=== PATIENT | female | born 1985 | race Caucasian/White ===

== ENCOUNTER → 2016-06-28 | Outpatient (REF) | payer BC, SELFPAY | LOC: M LAB REF 16:46 | PROVIDERS: ATTEND Physician Assistant Medical | DX: R30.0 Dysuria (principal) ==

== ENCOUNTER → 2017-06-05 | Outpatient (REF) | payer OTHER ==
[2017-06-05 17:21] LABS: HIV 1&2 SCREEN CENTAUR NEGATIVE (NEGATIVE)
[2017-06-05 19:10] LABS: CHLAMYDIA DNA AMPLIFICATION NEGATIVE (NEGATIVE); GC DNA AMPLIFICATION NEGATIVE (NEGATIVE)
[2017-06-11 00:06] LABS: HPV HYBRID CAPTURE II Negative (Negative)
== END ==
LOC: M SFHCWAGY 14:18
DX: Z12.4 Encounter for screening for malignant neoplasm of cervix (principal); Z11.3 Encounter for screening for infections with a predominantly sexual mode of transmission; Z11.4 Encounter for screening for human immunodeficiency virus [HIV]
CPT/HCPCS: 36415

== ENCOUNTER → 2017-06-11 | Outpatient (CLI) | payer OTHER | LOC: M WHC 09:14 | DX: N83.201 Unspecified ovarian cyst, right side (principal); N85.00 Endometrial hyperplasia, unspecified; Z87.42 Personal history of other diseases of the female genital tract | CPT/HCPCS: 76830 ==

== ENCOUNTER → 2023-06-07 | Outpatient (CLI) | payer OTHER ==
[2023-06-07 17:47] LABS: HEMATOCRIT 31.9 % (36.0-47.0); HEMOGLOBIN 10.5 g/dl (12.0-15.5); MEAN CORPUSCULAR HEMOGLOBIN 30.1 pg (27.0-33.0); MEAN CORPUSCULAR HGB CONC 32.9 g/dl (32.0-36.5); MEAN CORPUSCULAR VOLUME 91.4 fl (80.0-96.0); PLATELET COUNT, AUTOMATED 356 10^3/uL (150-450); RED BLOOD COUNT 3.49 10^6/uL (4.00-5.40); WHITE BLOOD COUNT 8.1 10^3/uL (4.0-10.0)
[2023-06-07 18:36] LABS: HIV 1&2 SCREEN NEGATIVE (NEGATIVE)
[2023-06-07 18:45] LABS: HEPATITIS C VIRUS ABY INDEX 0.03 INDEX (<0.8)
[2023-06-07 19:18] LABS: GC DNA AMPLIFICATION NEGATIVE (NEGATIVE)
== END ==
LOC: M PLALAB 15:17
PROVIDERS: ATTEND Advanced Practice Midwife
DX: Z34.91 Encounter for supervision of normal pregnancy, unspecified, first trimester (principal)

== ENCOUNTER → 2023-07-17 | Outpatient (CLI) | payer OTHER | LOC: M RAD 14:16 | PROVIDERS: ATTEND Obstetrics & Gynecology | DX: Z34.92 Encounter for supervision of normal pregnancy, unspecified, second trimester (principal) ==

== ENCOUNTER → 2023-09-05 | Outpatient (CLI) | payer OTHER | LOC: M LAB 07:54 | PROVIDERS: ATTEND Obstetrics & Gynecology | DX: R73.09 Other abnormal glucose (principal) ==

== ENCOUNTER 2023-09-09 08:17 | Outpatient (CLI) | payer OTHER ==
[~2023-09-09] VITALS: Ht 160 cm; Wt 58.2 kg
[~2023-09-09 08:17] MED LIST: ALBUTEROL SULFATE 2.5MG/0.5ML INH NEB SOLN INH PRN; EPINEPHrine INJ 1 MG/ML 1ML AMP IM PRN
[2023-09-09 08:45] VITALS: BP 103/57; O2SAT 97
[2023-09-09] MEDS ORDERED: NS 1,000 ML IV SCH (09:00)
[2023-09-09] MEDS ORDERED: TUMS500C PO (09:06)
[2023-09-09] MEDS ORDERED: MULTTAB20 PO (09:06)
[2023-09-09] MEDS ORDERED: IRON1TAB2 PO (09:06)
[2023-09-09] MEDS ORDERED: ZOLO50TA PO (09:06)
[2023-09-09] MEDS: IRON SUCROSE 500 MG in NS 250 ML OVER 4 HRS IV ONE (09:20)
[2023-09-09 10:00] VITALS: BP 96/55; O2SAT 98
[2023-09-09 11:00] VITALS: BP 109/55; O2SAT 97
[2023-09-09 12:00] VITALS: BP 111/64; O2SAT 99
[2023-09-09 13:00] VITALS: BP 109/59; O2SAT 97
[2023-09-09] MEDS: diphenhydrAMINE 50MG/ML VIAL IV PRN (13:22)
[2023-09-09] MEDS: methylPREDNISolone 125MG 2ML VIAL IV PRN (13:42)
[2023-09-09 13:47] VITALS: BP 109/60; O2SAT 100
[2023-09-09] MEDS: ACETAMINOPHEN 500 MG TAB PO ONE (14:23)
[2023-09-09] MEDS: NS 1,000 ML IV ONE (14:23)
== END 2023-09-09 15:24 ==
LOC: M INFU 08:17
PROVIDERS: ATTEND Obstetrics & Gynecology
DX: D64.9 Anemia, unspecified (principal)
CPT/HCPCS: 96361; 96365; 96366; 96367; J1200; J1756; J2919

== ENCOUNTER → 2023-10-09 | Outpatient (CLI) | payer OTHER ==
[~2023-10-09] MED LIST changes: -ALBUTEROL SULFATE 2.5MG/0.5ML INH NEB SOLN INH PRN; -EPINEPHrine INJ 1 MG/ML 1ML AMP IM PRN; +IRON1TAB2 PO; +MULTTAB20 PO; +TUMS500C PO; +ZOLO50TA PO
[2023-10-09 15:46] LABS: HEMATOCRIT 31.7 % (36.0-47.0); HEMOGLOBIN 10.3 g/dl (12.0-15.5); MEAN CORPUSCULAR HEMOGLOBIN 30.2 pg (27.0-33.0); MEAN CORPUSCULAR HGB CONC 32.5 g/dl (32.0-36.5); PLATELET COUNT, AUTOMATED 335 10^3/uL (150-450); RED BLOOD COUNT 3.41 10^6/uL (4.00-5.40); WHITE BLOOD COUNT 7.4 10^3/uL (4.0-10.0)
== END ==
LOC: M PLALAB 11:59
PROVIDERS: ATTEND Obstetrics & Gynecology
DX: O09.523 Supervision of elderly multigravida, third trimester (principal)

== ENCOUNTER → 2023-10-14 | Outpatient (CLI) | payer OTHER | LOC: M WHC 10:41 | PROVIDERS: ATTEND Obstetrics & Gynecology | DX: O09.523 Supervision of elderly multigravida, third trimester (principal) ==

== ENCOUNTER → 2023-11-03 | Outpatient (REF) | payer OTHER | LOC: M LAB REF 10:10 | PROVIDERS: ATTEND Physician Assistant Medical | DX: B34.9 Viral infection, unspecified (principal) ==

== ENCOUNTER → 2023-11-13 | Outpatient (REF) | payer OTHER | LOC: M PLALAB 14:38 | PROVIDERS: ATTEND Advanced Practice Midwife | DX: O09.513 Supervision of elderly primigravida, third trimester (principal); Z36.85 Encounter for antenatal screening for Streptococcus B; Z3A.00 Weeks of gestation of pregnancy not specified ==

== ENCOUNTER 2023-11-27 10:44 | Inpatient (IN) | payer OTHER ==
[~2023-11-27] VITALS: Ht 160 cm; Wt 64.0 kg
[2023-11-27] VITALS (14 sets, daily range): BP systolic 109–137; BP diastolic 57–80
[2023-11-27] MEDS: MORPHINE 10 MG/ML 1ML VIAL SC ONE (12:44)
[2023-11-27] MEDS: MORPHINE 10 MG/ML 1ML VIAL IV ONE (12:45)
[2023-11-27] MEDS: PROMETHAZINE 25MG/ML 1ML VIAL IV ONE (12:45)
[2023-11-27] MEDS: LR 1,000 ML IV SCH (12:45)
[2023-11-27] MEDS: CALCIUM CARBONATE 500 MG CHEW U/D PO ONE (20:05)
[2023-11-27] MEDS ORDERED: LR 1,000 ML IV SCH ×2 (20:40→22:50)
[2023-11-27] MEDS ORDERED: CARBOPROST TROMETHAMINE 250 MCG/ML AMP IM PRN (20:40)
[2023-11-27] MEDS ORDERED: TRANEXAMIC ACID INJection 1,000 MG in NS 100 ML IV PRN (20:40)
[2023-11-27] MEDS ORDERED: OXYTOCIN INJ 10UNITS/ML 1ML VIAL IM PRN (20:40)
[2023-11-27] MEDS ORDERED: METHYLERGONOVINE MALEATE 0.2MG/ML 1ML VIAL IM PRN (20:40)
[2023-11-27] MEDS ORDERED: OXYTOCIN DRIP 30 UNITS in IV 1 EA IV PRN (20:40)
[2023-11-27] MEDS: LACTATED RINGER'S 1000 ML IV STA (20:53)
[2023-11-27] MEDS ORDERED: OXYTOCIN 30UNITS IN 0.9% NaCl 500ML IV BAG As Ordered ONE (20:57)
[2023-11-27 21:01] LABS: HEMATOCRIT 31.3 % (36.0-47.0); HEMOGLOBIN 10.6 g/dl (12.0-15.5); MEAN CORPUSCULAR HEMOGLOBIN 30.4 pg (27.0-33.0); MEAN CORPUSCULAR HGB CONC 33.9 g/dl (32.0-36.5); MEAN CORPUSCULAR VOLUME 89.7 fl (80.0-96.0); PLATELET COUNT, AUTOMATED 262 10^3/uL (150-450); RED BLOOD COUNT 3.49 10^6/uL (4.00-5.40); WHITE BLOOD COUNT 13.4 10^3/uL (4.0-10.0)
[2023-11-27] MEDS ORDERED: LR 500 ML IV PRN (21:25)
[2023-11-27] MEDS ORDERED: EPIDURAL/PCA KEYS XX PRN (21:25)
[2023-11-27] MEDS ORDERED: NALOXONE INJ 0.4MG/1ML VIAL IV PRN (21:25)
[2023-11-27] MEDS ORDERED: ONDANSETRON 4MG 2ML VIAL IV PRN (21:25)
[2023-11-27] MEDS: FENTANYL/ROPIVACAINE/NACL BAG 100 ML EPIDURAL SCH (21:35)
[2023-11-27 22:10] LABS: HEPATITIS C VIRUS ABY INDEX < 0.02 INDEX (<0.8)
[2023-11-27] MEDS: OXYTOCIN DRIP 30 UNITS in IV 1 EA IV SCH (23:12)
[2023-11-28] VITALS (42 sets, daily range): BP systolic 92–146; BP diastolic 51–84; O2SAT 99
[2023-11-28] MEDS: ePHEDrine SULFATE 25 MG/5 ML(5MG/ML) SYRINGE IVP PRN (01:15)
[2023-11-28] MEDS: PRENATAL VITAMINS CHEWABLE TABLET PO SCH (09:00)
[2023-11-28] MEDS: diphenhydrAMINE 50MG/ML VIAL IV PRN (10:23)
[2023-11-28] MEDS: LIDOCAINE 1% MDV 20ML VIAL INFIL PRN (13:29)
[2023-11-28] MEDS: OXYTOCIN DRIP 30 UNITS in IV 1 EA IV PRN (13:30)
[2023-11-28] MEDS ORDERED: RHO(D) IMMUNE GLOBULIN/MALTOSE 500MCG(2500IU)/2.2ML VIAL (WINRHO) IM SCH (13:45)
[2023-11-28] MEDS: LIDOCAINE 1% MDV 20ML VIAL INFIL ONE (13:45)
[2023-11-28] MEDS ORDERED: METHYLERGONOVINE MALEATE 0.2 MG TAB PO PRN (13:45)
[2023-11-28] MEDS: IBUPROFEN 800 MG TAB PO PRN (16:18)
[2023-11-28] MEDS: SERTRALINE HCL 50 MG TAB PO ONE (18:45)
[2023-11-28] MEDS: ACETAMINOPHEN 500 MG TAB PO PRN (20:27)
[2023-11-28] MEDS: DOCUSATE SODIUM 100MG CAPSULE PO PRN (22:33)
[2023-11-29] MEDS: DIBUCAINE 1% OINTMENT 30GM TOP PRN (00:11)
[2023-11-29 05:52] VITALS: BP 102/64; O2SAT 98
[2023-11-29] MEDS: SERTRALINE HCL 50 MG TAB PO SCH (08:19)
[2023-11-29] MEDS: IBUPROFEN 600MG TAB PO PRN (14:01)
[2023-11-29] MEDS: ACETAMINOPHEN TAB 650MG DOSE (2X325MG) PO PRN (17:21)
[2023-11-29 18:00] VITALS: BP 99/57; O2SAT 100
[2023-11-30 06:00] VITALS: BP 92/50; O2SAT 96
[2023-11-30] MEDS: MEASLES,MUMPS,RUBELLA VACCINE INJ (MMR-II) SC.IMMUN ONE (07:31)
[2023-11-30] MEDS ORDERED: IBUP80TA PO (11:26)
[2023-11-30] MEDS ORDERED: ACET-683 PO (11:26)
== END 2023-11-30 17:25 | disposition home or self-care (01) | DRG 807 ==
LOC: M LDO 10:44 → M LDI 20:38 → M OBS 11-28 15:45
PROVIDERS: ADMIT Advanced Practice Midwife; ATTEND Specialist
PROC: 10E0XZZ Delivery of Products of Conception, External Approach (ICD-10-PCS; principal; 2023-11-28)
PROC: 0KQM0ZZ Repair Perineum Muscle, Open Approach (ICD-10-PCS; 2023-11-28)
PROC: 10907ZC Drainage of Amniotic Fluid, Therapeutic from Products of Conception, Via Natural or Artificial Opening (ICD-10-PCS; 2023-11-28)
DX: O99.02 Anemia complicating childbirth (principal); Z37.0 Single live birth; Z3A.38 38 weeks gestation of pregnancy; D64.9 Anemia, unspecified; O99.344 Other mental disorders complicating childbirth; F41.9 Anxiety disorder, unspecified; F32.A Depression, unspecified; O69.81X0 Labor and delivery complicated by cord around neck, without compression, not applicable or unspecified; O70.1 Second degree perineal laceration during delivery; Z79.899 Other long term (current) drug therapy; Z87.891 Personal history of nicotine dependence